=== PATIENT | female | born 1970 | race Caucasian/White ===

== ENCOUNTER 2018-12-26 06:30 | Day surgery (SDC) | payer OTHER ==
[~2018-12-26] VITALS: Ht 162.6 cm; Wt 79.4 kg
[2018-12-26] MEDS ORDERED: LevALBUTEROL HCL 1.25 MG/0.5 ML *CONC.* VIAL.NEB (XOPENEX CONC.) INH ONE ×2 (07:00→07:12)
[2018-12-26 07:11] LABS: HCG,QUAL RESULT NEGATIVE (NEGATIVE)
[2018-12-26] MEDS ORDERED: FAMOTIDINE PF 20 MG/2 ML VIAL ONE (08:21)
[2018-12-26] MEDS ORDERED: LR 1,000 ML IV SCH (08:49)
[2018-12-26] MEDS ORDERED: MEPERIDINE HCL/PF 25 MG/ML DISP.SYRIN IVP PRN (09:00)
[2018-12-26] MEDS ORDERED: HYDROmorphone 1 MG INJ. 1 MG/ML AMPUL IVP PRN (09:00)
[2018-12-26] MEDS ORDERED: HYDROmorphone 2 MG/ML VIAL IVP PRN ×2 (09:00)
[2018-12-26] MEDS ORDERED: LR 1,000 ML IV.SOLN IV ONE (09:40)
[2018-12-26] MEDS ORDERED: MIDAZOLAM HCL 5 MG/ML VIAL (VERSED) IV ONE (09:40)
[2018-12-26] MEDS ORDERED: DEXAMETHASONE SOD PHOSPHATE 4 MG/ML VIAL ONE (09:40)
[2018-12-26] MEDS ORDERED: KETOROLAC TROMETHAMINE 30 MG VIAL ONE (09:40)
[2018-12-26] MEDS ORDERED: ONDANSETRON HCL 4 MG/2 ML VIAL ONE (09:40)
[2018-12-26] MEDS ORDERED: PROPOFOL 200MG/ 20ML VIAL (DIPRIVAN) IV ONE (09:40)
[2018-12-26] MEDS ORDERED: CEFAZOLIN 2 GM IVPB PREMIX 50 ML IV ONE (09:40)
[2018-12-26] MEDS ORDERED: METOCLOPRAMIDE HCL 10 MG/2 ML VIAL ONE (09:40)
[2018-12-26] MEDS ORDERED: LIDOCAINE/EPI 1% 1:100000 20 ML VIAL INJ ONE (09:40)
[2018-12-26] MEDS ORDERED: fentaNYL CITRATE 250 MCG/5 ML AMP ONE (09:40)
[2018-12-26] MEDS ORDERED: ROCURONIUM BROMIDE 10 MG/ML (ZEMURON) ONE (09:40)
[2018-12-26] MEDS ORDERED: BACITRACIN 1 GM OINT TP ONE (09:40)
[2018-12-26] MEDS ORDERED: OXYMETAZOLINE HCL 0.05% NASAL SPRAY NS ONE (09:40)
[2018-12-26] MEDS ORDERED: [UNRECOGNIZED DRUG - OTHER] TP ONE (09:40)
[2018-12-26] MEDS ORDERED: SEVOFLURANE 15 MIN GAS INH ONE (09:40)
[2018-12-26 12:51] VITALS: BP_SYST 120
== END 2018-12-26 11:30 | disposition home or self-care (01) ==
LOC: SMU 06:30 → SDS 06:30
PROVIDERS: ATTEND Otolaryngology
DX: J34.2 Deviated nasal septum (principal); J32.2 Chronic ethmoidal sinusitis; J32.0 Chronic maxillary sinusitis; D38.5 Neoplasm of uncertain behavior of other respiratory organs; R35.1 Nocturia; F17.200 Nicotine dependence, unspecified, uncomplicated; E66.9 Obesity, unspecified; J30.9 Allergic rhinitis, unspecified; Z88.2 Allergy status to sulfonamides
CPT/HCPCS: 30140; 30520; 31255; 31256; 42831; 84703; 87070; 87075; 87101; 88305; 88311; C1726; J0690; J1100; J1885; J2250; J2405; J2704; J2765; J3010; J3490; J7120; J7612